=== PATIENT | male | born 1990 | race African-American/Black ===

== ENCOUNTER 2019-03-30 11:45 | Emergency (ER) | payer OTHER, MEDICAID, SELFPAY ==
[2019-03-30 11:55] VITALS: BP 142/71; PULSE 84; RESP 20; TEMP 36.6; O2SAT 99
--- NOTE | 2019-03-30 12:02 | ED.URI ---
HPI - URI/Sore Throat General Chief Complaint: Upper Respiratory Infection Stated Complaint: fever aches and itchy throat Time Seen by Provider: 03/30/19 12:03 Source: patient and RN notes reviewed History of Present Illness HPI Narrative: Patient is a 28-year-old male that presents the urgent care with complaints of fever, body aches, sore throat, right ear pain. Patient states that the fever started today and he took Tylenol prior to arrival. States the sore throat started 2 days ago in the right ear pain is been going on for approximately 4 to 5 days. Patient states he has had some intermittent nausea but denies any vomiting. Patient has not used anything else [id number] for his symptoms. No other acute complaints. No acute distress noted. Patient read the plan of care. Related Data Allergies Allergy/AdvReac Type Severity Reaction Status Date / Time cefadroxil [From Duricef] Allergy Unknown Verified 03/30/19 12:16 cefprozil [From Cefzil] Allergy Unknown Verified 03/30/19 12:16 Review of Systems Review of Systems: Narrative: CONSTITUTIONAL: Reports a fever EYES: Denies visual changes, redness, or discharge. ENT: Reports of sore throat and right ear pain CARDIOVASCULAR: Denies chest pain, palpitations, or edema. RESPIRATORY: Denies cough or dyspnea. GASTROINTESTINAL: Reports of nausea without vomiting GENITOURINARY: Denies dysuria or hematuria. SKIN: Denies rash or itching. MUSCULOSKELETAL: Denies back pain, joint pain; reports of body aches NEUROLOGIC: Denies headache, numbness, or weakness. All other systems reviewed are negative, except as documented in HPI. PMFSH Comments At the time of my signature, I reviewed and agree with the nursing past medical, surgical, social, and family history. There is no relevant family history pertinent to the patient complaint. Exam Narrative: Exam Narrative: GENERAL: This is a well-nourished, well-developed patient, in no apparent distress. HEAD: normocephalic, atraumatic. EYES: PERRL. Sclera clear/white. Vision is grossly intact. EARS: External ears normal, auditory canals clear and without drainage, mild fluid noted behind bilateral TMs, TMs normal without perforation. Hearing grossly intact. NOSE: External nose normal with no obvious nasal discharge, nares without redness, clear rhinorrhea. THROAT: Mucous membranes moist, mild erythema noted posterior oropharynx with moderate postnasal drainage NECK: Neck supple, non-tender without lymphadenopathy CARDIOVASCULAR: Regular rate and rhythm without murmurs, gallops, or rubs. RESPIRATORY: Clear to auscultation. Breath sounds equal bilaterally. No wheezes, rales, or rhonchi. SKIN: warm, intact with no suspicious lesions or rash, good texture and turgor. NEURO: awake, alert, and oriented to person, place and time. There were no obvious focal neurologic abnormalities. EXTREMITIES: No clubbing, cyanosis, or edema. Course Vital Signs Vital signs: Vital Signs Temperature 98 F 03/30/19 11:55 Pulse Rate 84 03/30/19 11:55 Respiratory Rate 20 03/30/19 11:55 Blood Pressure 142/71 H 03/30/19 11:55 Pulse Oximetry 99 03/30/19 11:55 Temperature 98 F 03/30/19 11:55 Pulse Rate 84 03/30/19 11:55 Respiratory Rate 20 03/30/19 11:55 Blood Pressure 142/71 H 03/30/19 11:55 Pulse Oximetry 99 03/30/19 11:55 Reviewed?patient is informed that they may have pre-hypertension or hypertension based on a blood pressure reading in the department. I recommend the patient call the primary care provider listed on their discharge instructions or a physician of their choice this week to arrange follow-up for further evaluation of possible pre-hypertension or hypertension. MDM - URI/Sore Throat MDM Narrative Medical decision making narrative: Reviewed lab results with the patient. He is aware that strep swab was positive. Advised him to complete antibiotic regimen as prescribed. Make sure to eat and drink with medication. Use Tyl
== END 2019-03-30 12:30 | disposition home or self-care (01) ==
PROVIDERS: Emergency Provider Nurse Practitioner Family
DX: J02.0 Streptococcal pharyngitis (principal)
CPT/HCPCS: 87804; 87880; 99213; G0463

== ENCOUNTER 2020-04-18 19:51 | Emergency (ER) | payer OTHER, SELFPAY ==
[2020-04-18 19:59] VITALS: BP 161/87; PULSE 86; RESP 16; TEMP 36.9; O2SAT 100
[2020-04-18 20:09] VITALS: BP 161/87; PULSE 86; RESP 16; TEMP 36.9; O2SAT 100
--- NOTE | 2020-04-18 20:09 | ED.DENTAL ---
HPI - Dental/Oral General Chief complaint: Dental/Oral Stated complaint: Dental/Oral/Swollen Face Time Seen by Provider: 04/18/20 20:05 Source: patient and RN notes reviewed Mode of arrival: ambulatory Limitations: no limitations History of Present Illness HPI Narrative: 29 year old male presents ambulatory with 2 day history of dental pain to the left lower jaw with swelling to the left lower jaw region. Patient states that he has taken Ibuprofen, Tylenol, and left over [place] that he had but pain continues to be 10/10 and is throbbing. Patient has several decayed teeth and some missing teeth with pain today to left lower molars #19.#18 with parts of both teeth missing with surrounding gums red, swollen and abscess noted on gum next to #19 tooth. Patient denies any difficulty with his breathing or with swallowing, no Simba angina noted. MD Complaint: tooth pain Location: Tooth # (#18 and #19) Onset (ago): day(s) (2) Duration: constant Severity: severe Severity scale (1-10): >10 Relieving factors: nothing Exacerbating factors: chewing and drinking fluids Context: history of dental caries Associated symptoms: gum swelling and other (facial swelling) Treatment prior to arrival: oral analgesic Related Data Allergies Allergy/AdvReac Type Severity Reaction Status Date / Time cefadroxil [From Duricef] Allergy Rash Verified 04/18/20 20:08 cefprozil [From Cefzil] Allergy Rash Verified 04/18/20 20:08 Review of Systems Review of Systems: Narrative: CONSTITUTIONAL: Denies fever, chills, or sweats. EYES: Denies visual changes, redness, or discharge. ENT: Denies rhinorrhea, congestion, sore throat, or otalgia.positive for dental pain to left lower molars with some swelling present to the left lower jaw. CARDIOVASCULAR: Denies chest pain, palpitations, or edema. RESPIRATORY: Denies cough or dyspnea. GASTROINTESTINAL: Denies abdominal pain, nausea, vomiting, or diarrhea. GENITOURINARY: Denies dysuria or hematuria. SKIN: Denies rash or itching. MUSCULOSKELETAL: Denies back pain, joint pain, or myalgia. NEUROLOGIC: Denies headache, numbness, or weakness. PSYCHIATRIC: Denies anxiety or depression. All systems reviewed & are unremarkable except as noted in HPI and below PMFSH Past Medical History Medical History (Updated 04/20/20 @ 15:05 by Mili Delgado NP) History of dental problems Iron deficiency anemia Surgical History Surgical History (Updated 04/20/20 @ 15:05 by Mili Delgado NP) No pertinent past surgical history Family History Family History (Updated 04/20/20 @ 15:02 by Mili Delgado NP) Father Heart disease Diabetes mellitus Grandparent Heart disease Diabetes mellitus Mother Diabetes mellitus Heart disease Social History Social History (Updated 04/20/20 @ 15:05 by Mili Delgado NP) Smoking packs per day: 1 Smoking cigarettes per day: 20.0 Years smoked: 11 Smoking pack-years: 11.00 Smoking status: Former smoker Smoking end date: 03/21/20 Alcohol intake: unknown Substance use: unknown Living arrangements: with family Gender identity (if verbalized by the patient): Male Comments At time of signature, agree with nursing past medical, surgical, social and family history. There is no relevant family history pertinent to the presenting complaint Exam Narrative: Exam Narrative: GENERAL: Well-appearing, well-nourished, and in mild distress. HEAD: Normocephalic, atraumatic. EYES: PERRLA and EOMI. ENT: Nares clear, no rhinorrhea or epistaxis. Mucous membranes moist.TM's normal with good light reflex, throat pink no tonsil enlargement, lesions or exudate, noted dental caries with pain to #18.#19 molars with swelling and redness of gums surrounding these teeth with white abscess on gum near #19 tooth, swelling to left lower jaw, no Simba angina noted, no trismus NECK: Supple.no lymphadenopathy CHEST: Clear to auscultation. No respiratory distress.SAO2 100% on room air HEART: R
== END 2020-04-18 20:23 | disposition home or self-care (01) ==
PROVIDERS: Emergency Provider Registered Nurse
DX: K04.7 Periapical abscess without sinus (principal)
CPT/HCPCS: 99213; G0463